=== PATIENT | male | born 1960 | race Caucasian/White ===

== ENCOUNTER → 2021-12-16 11:18 | Outpatient (BNVA) | payer OTHER, SELFPAY | PROVIDERS: Family Provider Family Medicine; PCP Nurse Practitioner Family; Visit Provider Family Medicine | DX: F32.A Depression, unspecified (principal); E78.5 Hyperlipidemia, unspecified; F41.9 Anxiety disorder, unspecified; R00.2 Palpitations | CPT/HCPCS: 80053; 80061; 83036; 84443; 85025 ==

== ENCOUNTER 2022-02-25 08:12 | Outpatient (CLI) | payer OTHER, SELFPAY ==
--- NOTE | 2022-02-25 08:30 | USCV_ITS ---
Tray Galdamez Age: 61 Gender: M : 1960 Exam Date: 02/25/2022 08:22 Ordering Phys: Dejuan Bro MD Technologist: Kat Connolly [place] [facility] [place]: CHEST PAIN AND HEART FLUTTERING BP: 130 / 70 HR: 73 Rhythm: Sinus Technical Quality: Adequate MEASUREMENTS (Male / Female) Normal Values 2D ECHO LV Diastolic Diameter PLAX 4.5 cm 4.2 - 5.9 / 3.9 - 5.3 cm LV Systolic Diameter PLAX 2.1 cm LV Chamber Size 3.0 cm IVS Diastolic Thickness 0.9 cm 0.6 - 1.0 / 0.6 - 0.9 cm IVS Systolic Thickness 1.3 cm LVPW Diastolic Thickness 0.9 cm 0.6 - 1.0 / 0.6 - 0.9 cm LVPW Systolic Thickness 1.2 cm RV Chamber Size 3.2 cm LVOT Diameter 2.0 cm LV Ejection Fraction 2D Teich 84.3 % LV Ejection Fraction MOD 2C 24.8 % LV Ejection Fraction 2C AL 27.8 % LA Diameter 2.9 cm LA Width 2.3 cm LA Height 4.2 cm RA Width 3.9 cm RA Height 3.9 cm Aorta at Sinotubular Diameter 3.0 cm M-MODE Aortic Annulus Diameter 3.8 cm LA Ao Ratio MM 0.9 MV E Point Septal Separation 0.7 cm DOPPLER AV Peak Velocity 132.0 cm/s LVOT Peak Velocity 94.0 cm/s AV Area Cont Eq vti 2.2 cm squared AV Area Cont Eq pk 2.3 cm squared MV Area PHT 3.9 cm squared Mitral E to A Ratio 1.8 MV E' Velocity 50.5 cm/s Mitral E to MV E' Ratio 11.3 Mitral E to LV E' Lateral Ratio 11.2 Mitral E to LV E' Septal Ratio 11.6 TR Peak Velocity 202.1 cm/s TR Peak Gradient 16.3 mmHg TR Mean Velocity 143.3 cm/s TR Mean Gradient 10.8 mmHg TR Velocity Time Integral 53.5 cm TV Peak E Velocity 57.0 cm/s PV Peak Velocity 64.0 cm/s RV Acceleration Time 0.1 s RV Ejection Time 0.4 s RV AcT/ET 0.3 FINDINGS Left Ventricle Normal left ventricular size. LV systolic function is normal with EF of 55-60%. No regional wall motion abnormalities. Diastolic function is normal Right Ventricle The right ventricle is normal in size and function. Right Atrium The right atrium is normal in size. Left Atrium The left atrium is normal in size. Mitral Valve Structurally normal mitral valve without significant stenosis or prolapse. There is no mitral regurgitation. Aortic Valve Thickened aortic valve without significant stenosis. There is no aortic regurgitation. Tricuspid Valve Grossly normal without significant stenosis or regurgitation. Insufficient TR jet to calculate RVSP Pulmonic Valve Not well visualized. Pericardium Normal pericardium without effusion. Aorta Normal ascending aorta dimension. CONCLUSIONS Technically limited quality echocardiogram because of poor ultrasonic windows LV systolic function is normal with EF of 55-60% Aortic valve is thickened No gross valvular heart disease No comparison studies are available Shin Blank MD (Electronically Signed) Final Date: 01 March 2022 17:10 S
== END 2022-02-25 08:13 | disposition home or self-care (01) ==
LOC: RAD 08:14
PROVIDERS: Family Provider Family Medicine; PCP Nurse Practitioner Family; Visit Provider Family Medicine
DX: R07.89 Other chest pain (principal); E78.5 Hyperlipidemia, unspecified; I35.8 Other nonrheumatic aortic valve disorders
CPT/HCPCS: 93306

== ENCOUNTER → 2022-08-26 13:16 | Outpatient (BNVA) | payer OTHER, SELFPAY | PROVIDERS: Family Provider Family Medicine; PCP Family Medicine; Visit Provider Family Medicine | DX: Z12.11 Encounter for screening for malignant neoplasm of colon (principal); Z83.71 Family history of colonic polyps; E78.5 Hyperlipidemia, unspecified; F32.A Depression, unspecified; F41.9 Anxiety disorder, unspecified; J01.10 Acute frontal sinusitis, unspecified | CPT/HCPCS: 80048; 80061; 83036; 84443; 85025 ==

== ENCOUNTER 2022-11-12 08:06 | Day surgery (SDC) | payer OTHER, SELFPAY ==
[2022-11-12 08:37] VITALS: BP 131/81; PULSE 76; RESP 18; TEMP 36.5; O2SAT 95
[2022-11-12] MEDS: sodium chloride 0.9% 1,000 ML 30 ML IV (08:39)
--- NOTE | 2022-11-12 09:43 | P.HP_ITS ---
Providers/Chief Complaint Primary Care Provider: Dejuan Bro MD Chief Complaint: Z12.11, Z83.71 encounter for screening History of Present Illness Tray Galdamez is a 62 year old male here for colonoscopy Medications/Allergies Home Medications Medication Instructions Recorded Confirmed Last Taken Type clonazepam 0.5 mg tablet 0.5 mg PO BID 30 days #60 tabs 10/20/22 11/12/22 11/09/22 Rx propranolol 20 mg tablet 20 mg PO DAILY 11/07/22 11/12/22 11/12/22 History vortioxetine 10 mg tablet 10 mg PO DAILY 11/07/22 11/12/22 11/11/22 History (Trintellix) Allergies Allergy/AdvReac Type Severity Reaction Status Date / Time Penicillins Allergy Unknown Unknown Verified 11/12/22 08:33 bupropion [From Wellbutrin] Allergy ALGY-Anaphy Verified 11/12/22 08:33 laxis PFSH Acute PFSH: Medical History (Updated 11/12/22 @ 09:43 by Sahil Sesay DO) Lower leg edema 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 Surgical History (Updated 08/29/22 @ 11:18 by Sahil Sesay DO) History of appendectomy History of foot surgery Family History Grandfather Heart attack Social History Smoking and tobacco status: never smoked Alcohol intake: former Vitals/I&O/Wt Last Vital Signs Temp 97.7 F 11/12/22 08:37 Pulse 76 11/12/22 08:37 Resp 18 11/12/22 08:37 BP 131/81 11/12/22 08:37 Pulse Ox 95 11/12/22 08:37 O2 Del Method 11/12/22 08:37 A&P Assessment and plan (1) Colon cancer screening: Plan Colonoscopy Attestations Medical Necessity Statement*: Home Coding Level of Care Code Acute 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
--- NOTE | 2022-11-12 09:43 | ANES.PREANE2 ---
Pre-Anesthetic Assessment Height/Weight: Height 1.83 m Weight 104.326 kg Temp Pulse Resp BP Pulse Ox O2 Del Method 97.7 F 76 18 131/81 95 11/12/22 08:37 11/12/22 08:37 11/12/22 08:37 11/12/22 08:37 11/12/22 08:37 11/12/22 08:37 Operation Date: 11/12/22 09:45 Proposed Procedures p Colonoscopy 33917,Z12.11,Z83.71(Not Applicable) - Sahil Sseay DO Familial anesthetic complications: none Was Beta Miya taken within 24 hours: Yes Was Clonidine taken within 24 hours: N/A Last intake: Intake Last Liquid Date 11/11/22 Last Liquid Time 22:00 Last Solid Date 11/10/22 Last Solid Time 19:00 Social No alcohol and No tobacco Exam alert, oriented x 3, clear to auscultation bilaterally and regular rate & rhythm Airway Mallampati: Class III Dentition: full CV/HEM Arrythmia (SVT/PACs on beta blockers) and Palpitations Hasn't had any episodes of CP/palpitations in months Metabolic Hyperlipidemia Neuropsych Anxiety and Depression Anesthetic Plan ASA status: 2 Anesthesia: MAC Risk of > 500 ml blood loss (7ml/kg in children): No Medications/Allergies Home Medications Medication Instructions Recorded Confirmed Last Taken Type clonazepam 0.5 mg tablet 0.5 mg PO BID 30 days #60 tabs 10/20/22 11/12/22 11/09/22 Rx propranolol 20 mg tablet 20 mg PO DAILY 11/07/22 11/12/22 11/12/22 History vortioxetine 10 mg tablet 10 mg PO DAILY 11/07/22 11/12/22 11/11/22 History (Trintellix) Allergies Allergy/AdvReac Type Severity Reaction Status Date / Time Penicillins Allergy Unknown Unknown Verified 11/12/22 08:33 bupropion [From Wellbutrin] Allergy ALGY-Anaphy Verified 11/12/22 08:33 laxis Current Medications Generic Name Dose Route Start Last Admin Trade Name Freq PRN Reason Stop Dose Admin Sodium Chloride 1,000 mls @ 30 mls/hr 11/12/22 08:15 11/12/22 08:39 Sodium Chloride 0.9% IV 11/13/22 08:14 30 mls/hr .Q24H RYAN Administration PFSH Anesthesia Medical History (Updated 11/12/22 @ 09:43 by Sahil Sesay DO) Lower leg edema 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
[2022-11-12 10:30] VITALS: BP 118/76; PULSE 90; RESP 14; TEMP 37.2; O2SAT 96
[2022-11-12 10:45] VITALS: BP 106/67; PULSE 76; RESP 16; O2SAT 96
--- NOTE | 2022-11-12 12:06 | ANE.PACU2 ---
Inpatient post-anesthesia follow up: Airway intact: Yes Vital signs: Temperature 98.9 F Pulse Rate 76 Respiratory Rate 16 Blood Pressure 106/67 Pulse Oximetry 96 Oxygen Delivery Me thod Room Air Oxygen Flow Rate Fraction of Inspir ed Oxygen Hydration adequate: Yes Nausea and vomiting: No Pain level: 1 Mental status: Baseline
== END 2022-11-12 11:00 | disposition home or self-care (01) ==
PROVIDERS: PCP Family Medicine; Visit Provider Surgery
PROC: 0DJD8ZZ Inspection of Lower Intestinal Tract, Via Natural or Artificial Opening Endoscopic (ICD-10-PCS; CPT 45378; principal; 2022-11-12 09:45)
DX: Z12.11 Encounter for screening for malignant neoplasm of colon (principal); Z83.71 Family history of colonic polyps; D12.4 Benign neoplasm of descending colon; D12.3 Benign neoplasm of transverse colon; E78.5 Hyperlipidemia, unspecified
CPT/HCPCS: 45385; 88305; J7030

== ENCOUNTER → 2023-06-15 09:25 | Outpatient (BNVA) | payer OTHER, SELFPAY | PROVIDERS: PCP Family Medicine; Visit Provider Family Medicine | DX: E78.5 Hyperlipidemia, unspecified (principal); F41.9 Anxiety disorder, unspecified; F32.A Depression, unspecified | CPT/HCPCS: 80053; 80061; 83036; 85025; G0103 ==

== ENCOUNTER → 2024-05-13 09:38 | Outpatient (BNVA) | payer MEDICARE, SELFPAY | PROVIDERS: PCP Family Medicine; Visit Provider Nurse Practitioner Family | DX: E78.5 Hyperlipidemia, unspecified (principal); F41.9 Anxiety disorder, unspecified; F32.A Depression, unspecified; S46.911A Strain of unspecified muscle, fascia and tendon at shoulder and upper arm level, right arm, initial encounter; S46.912A Strain of unspecified muscle, fascia and tendon at shoulder and upper arm level, left arm, initial encounter; X50.3XXA Overexertion from repetitive movements, initial encounter; M19.019 Primary osteoarthritis, unspecified shoulder; Z79.899 Other long term (current) drug therapy | CPT/HCPCS: 73030; 80053; 80061; 81003; 83036; 84443; 85025 ==

== ENCOUNTER → 2024-05-24 16:06 | Outpatient (BNVA) | payer MEDICARE, SELFPAY | PROVIDERS: PCP Family Medicine; Visit Provider Nurse Practitioner Family | DX: Z12.5 Encounter for screening for malignant neoplasm of prostate (principal) | CPT/HCPCS: G0103 ==

== ENCOUNTER 2024-06-07 06:00 | Outpatient (RCR) | payer MEDICARE, SELFPAY | END 2024-06-15 23:59 | disposition home or self-care (01) | LOC: WPT 06:00 | PROVIDERS: PCP Family Medicine; Visit Provider Nurse Practitioner Family | DX: M19.011 Primary osteoarthritis, right shoulder (principal); M19.012 Primary osteoarthritis, left shoulder | CPT/HCPCS: 97110; 97112; 97161; 97530 ==

== ENCOUNTER 2024-06-16 06:00 | Outpatient (RCR) | payer MEDICARE, SELFPAY | END 2024-07-16 23:59 | disposition home or self-care (01) | LOC: WPT 06:00 | PROVIDERS: PCP Family Medicine; Visit Provider Nurse Practitioner Family | DX: M19.012 Primary osteoarthritis, left shoulder (principal); M19.011 Primary osteoarthritis, right shoulder | CPT/HCPCS: 97110; 97112; 97530 ==

== ENCOUNTER → 2025-02-08 08:33 | Outpatient (BNVA) | payer MEDICARE, SELFPAY | PROVIDERS: PCP Nurse Practitioner Family; Visit Provider Nurse Practitioner Family | DX: Z12.5 Encounter for screening for malignant neoplasm of prostate (principal); E78.2 Mixed hyperlipidemia; Z79.899 Other long term (current) drug therapy; R53.83 Other fatigue | CPT/HCPCS: 80053; 80061; 81003; 83036; 84443; 85025; G0103 ==

== ENCOUNTER → 2025-02-14 11:54 | Outpatient (BNVA) | payer MEDICARE, SELFPAY | PROVIDERS: PCP Nurse Practitioner Family; Visit Provider Nurse Practitioner Family | DX: R97.20 Elevated prostate specific antigen [PSA] (principal) | CPT/HCPCS: 84153 ==

== ENCOUNTER → 2025-05-15 08:18 | Outpatient (BNVA) | payer MEDICARE, SELFPAY | PROVIDERS: PCP Nurse Practitioner Family; Visit Provider Nurse Practitioner Family | DX: R97.20 Elevated prostate specific antigen [PSA] (principal) | CPT/HCPCS: 81003; 84153 ==

== ENCOUNTER → 2025-08-14 08:03 | Outpatient (BNVA) | payer MEDICARE, SELFPAY | PROVIDERS: PCP Nurse Practitioner Family; Visit Provider Nurse Practitioner Family | DX: R97.20 Elevated prostate specific antigen [PSA] (principal) | CPT/HCPCS: 84153 ==